=== PATIENT | female | born 1995 | race African-American/Black ===

== ENCOUNTER 2023-12-03 22:50 | Day surgery (SDC) | payer BC, OTHER ==
[2023-12-03 23:14] VITALS: BMI 31.0
[2023-12-03] MEDS ORDERED: hydrALAZINE 20 MG/ML VIAL SLOW IVP PRN (23:41)
[2023-12-03] MEDS ORDERED: Lactated Ringer's 1,000 ML IV SCH (23:45)
[2023-12-03 23:51] LABS: Bilirubin Neg (Negative); Blood, Urine 50 (Negative); Clarity Slightly Cloudy (Clear); Glucose, Urine (Dipstick) 250 mg/dL (Negative); Ketone, Urine 15 mg/dL (Negative); Nitrite Negative (Negative); Protein, Urine (Dipstick) 15 mg/dl (Neg-Trace)
[2023-12-04 00:10] LABS: Leukocyte 25 (Negative)
[2023-12-04 00:11] LABS: Bacteria/HPF 2+ HPF (None Seen); CAUTI Indications for Culture Pregnancy; Squamous Epithelial 21-50 HPF (0-3)
[2023-12-04 00:13] LABS: Urine Culture Reflex Yes Yes
== END 2023-12-04 01:08 | disposition home or self-care (01) ==
LOC: CSHLD/OP 22:50
PROVIDERS: ATTEND Obstetrics & Gynecology
DX: O47.1 False labor at or after 37 completed weeks of gestation (principal); O34.211 Maternal care for low transverse scar from previous cesarean delivery; O00.01 Abdominal pregnancy with intrauterine pregnancy; O99.891 Other specified diseases and conditions complicating pregnancy; R00.0 Tachycardia, unspecified; O99.283 Endocrine, nutritional and metabolic diseases complicating pregnancy, third trimester; E86.0 Dehydration; Z79.899 Other long term (current) drug therapy; Z91.040 Latex allergy status; Z91.048 Other nonmedicinal substance allergy status; Z3A.38 38 weeks gestation of pregnancy
CPT/HCPCS: 81001; 87086